=== PATIENT | female | born 1985 | race African-American/Black ===

== ENCOUNTER → 2017-04-03 | Outpatient (CLI) | payer OTHER ==
[2016-02-26 13:42] VITALS: BP 110/69
[~2017-04-03] MED LIST: ALBU8.5H6 INH; LEXAPRO5 MG PO
--- NOTE | 2017-04-03 13:29 | RAD ---
Left breast ultrasound, 04/03/2017: History: Breast lump The patient's areas of palpable concern are at the 12:00 and 10:00 locations in the left breast. A targeted ultrasound exam of those regions was performed. Normal heterogeneous fibroglandular shadows are seen. No cystic or solid breast mass is evident at these levels. Left diagnostic mammograms, 04/03/2017: The fibroglandular pattern in the left breast is heterogeneously dense which can limit the sensitivity of mammography. No mass is identified no suspicious microcalcifications are seen. The skin and axillary regions are unremarkable. IMPRESSION: 1. The targeted left breast ultrasound reveals no abnormality. 2. No mammographic evidence of malignancy in the left breast. 3. Clinical surveillance is suggested. BI-RADS CATEGORY: 1 NEGATIVE RECOMMENDED FOLLOW-UP: CLIN FOLLOW UP IMAGING CLINICALLY INDICATED PQRS compliance statement: Patient information was entered into a reminder system with a target due date for the next mammogram. Mammography is a sensitive method for finding small breast cancers, but it does not detect them all and is not a substitute for careful clinical examination. A negative mammogram does not negate a clinically suspicious finding and should not result in delay in biopsying a clinically suspicious abnormality. "Our facility is accredited by the [employer] Mammography Program."
== END | disposition home or self-care (01) ==
LOC: US 12:22
PROVIDERS: ATTEND Obstetrics & Gynecology
DX: N63 Unspecified lump in breast (principal)
CPT/HCPCS: 76641; G0206; 77065

== ENCOUNTER → 2020-11-26 | Outpatient (CLI) | payer OTHER ==
[2016-02-26 13:42] VITALS: BP 110/69
== END ==
LOC: SLPLAB 18:58
PROVIDERS: ATTEND Psychiatry & Neurology Neurology with Special Qualifications in Child Neurology
DX: G47.10 Hypersomnia, unspecified (principal)
CPT/HCPCS: 95805; 95810